=== PATIENT | male | born 1995 | race African-American/Black ===

== ENCOUNTER 2020-01-28 20:21 | Emergency (ER) | payer OTHER, SELFPAY ==
--- NOTE | ~2020-01-28 | XR_ITS ---
XR chest 1V portable DATE: 01/28/2020 21:10 INDICATION: Cough, shortness of breath, sore throat TECHNIQUE: Portable AP views on 01/28/2020 at 2100 hours COMPARISON: None FINDINGS: Normal heart size. The lungs are hyperinflated but clear of infiltrate or consolidation. No pleural effusion or pulmonary vascular congestion or pneumothorax. IMPRESSION: Bilateral hyperinflation; no active cardiac pulmonary disease Reviewed, dictated and finalized at location A.
[2020-01-28 20:36] VITALS: BP 114/66; PULSE 57; RESP 16; TEMP 36.5; O2SAT 100
--- NOTE | 2020-01-28 20:48 | ED.GENADULT ---
HPI - General Adult General Chief complaint: Upper Respiratory Infection Stated complaint: hot flashes, headache, SOB Time Seen by Provider: 01/28/20 20:37 Source: patient Mode of arrival: ambulatory Limitations: no limitations History of Present Illness HPI narrative: Patient is a 24-year-old male who presents with 3 weeks duration of fatigue chills body aches cough sore throat patient has multiple family members which were positive for COVID. Patient also admits to tobacco abuse. Patient on arrival to emergency department is in the room in no distress. Patient denies dyspnea chest pain vomiting or diarrhea Related Data Allergies Allergy/AdvReac Type Severity Reaction Status Date / Time No Known Allergies Allergy Verified 01/28/20 20:37 Review of Systems Review of Systems: All systems reviewed & are unremarkable except as noted in HPI and below PMFSH Social History Social History (Updated 01/28/20 @ 20:49 by Mario Brothers PA-C) Smoking status: Current every day smoker Exam Narrative: Exam Narrative: GENERAL: Well-appearing, well-nourished, and in no acute distress. HEAD: Normocephalic, atraumatic. EYES: PERRLA and EOMI. ENT: Nares clear, no rhinorrhea or epistaxis. Mucous membranes moist. Oropharynx without tonsillar hypertrophy exudate or other lesions. Bilateral TMs pearly early nonbulging NECK: Supple. No adenopathy or masses. CHEST: Clear to auscultation. No respiratory distress. No wheezes rales or rhonchi HEART: Regular rate and rhythm. No murmur heard. EXTREMITIES: Normal range of motion. No edema. SKIN: Warm, dry, no rash. NEURO: No focal deficits. Alert and oriented x3. PSYCH: Normal mood and affect. Course Course Emergency Course: Patient in the room at this time resting comfortably in the room in no distress aware of case findings treatment plan and diagnosis Vital Signs Vital signs: Vital Signs Temperature 97.7 F 01/28/20 20:36 Pulse Rate 57 L 01/28/20 20:36 Respiratory Rate 16 01/28/20 20:36 Blood Pressure 114/66 01/28/20 20:36 Pulse Oximetry 100 01/28/20 20:36 Temperature 97.7 F 01/28/20 20:36 Pulse Rate 57 L 01/28/20 20:36 Respiratory Rate 16 01/28/20 20:36 Blood Pressure 114/66 01/28/20 20:36 Pulse Oximetry 100 01/28/20 20:36 Medical Decision Making MDM Narrative Medical decision making narrative: Patient with likely upper respiratory infection afebrile nontoxic-appearing tested for COVID will be treated symptomatically no pneumonia normal vital signs felt appropriate for outpatient reevaluation Vital Signs Vital Signs: Vital Signs Temperature 97.7 F 01/28/20 20:36 Pulse Rate 57 L 01/28/20 20:36 Respiratory Rate 16 01/28/20 20:36 Blood Pressure 114/66 01/28/20 20:36 Pulse Oximetry 100 01/28/20 20:36 Temperature 97.7 F 01/28/20 20:36 Pulse Rate 57 L 01/28/20 20:36 Respiratory Rate 16 01/28/20 20:36 Blood Pressure 114/66 01/28/20 20:36 Pulse Oximetry 100 01/28/20 20:36 Discharge Plan Discharge Clinical Impression: Upper respiratory infection Patient Disposition: Home, Self-Care Condition: Stable Instructions: Antibiotic Form, COVID-19 (Coronavirus Disease 2019) (ED) Additional Instructions: Follow up with your primary care provider within 5-7 days. Go to ER for shortness of breath, difficulty breathing, chest pain, fever/chills, weakness, nauseau/vomitting, etc. or any other concerns. Stay well-hydrated Take any prescribed medications as directed. Self quarantine until you have your results and have been advised otherwise by primary care If you do not have a drug allergy to tylenol or motrin and can tolerate it then take tylenol or motrin as needed for discomfort/pain. Prescriptions: New loratadine [Claritin] 10 mg tablet 10 mg PO DAILY PRN (Reason: allergy symptoms) Qty: 7 RF: 0 albuterol sulfate 90 mcg/actuation HFA aerosol inhaler 2 puff INHALATION QID PRN (Reason: eder
[2020-01-28 21:59] VITALS: BP 105/55; PULSE 55; RESP 20; O2SAT 94
[2020-01-28 22:12] VITALS: BP 105/55; PULSE 55; RESP 20; O2SAT 95
[2020-01-30 11:39] LABS: SARS-CoV-2 RNA PCR Negative
== END 2020-01-28 22:14 | disposition home or self-care (01) ==
LOC: ANHED 22:05
PROVIDERS: Emergency Medicine Emergency Medical Services; Emergency Provider Emergency Medicine
DX: J06.9 Acute upper respiratory infection, unspecified (principal); Z20.828 Contact with and (suspected) exposure to other viral communicable diseases; F17.200 Nicotine dependence, unspecified, uncomplicated
CPT/HCPCS: 71045; 87635; 99283; C9803; U0003